=== PATIENT | male | born 1950 | race Two or more races ===

== ENCOUNTER 2022-06-21 14:06 | Day surgery (SDC) | payer MEDICARE, BC ==
[~2022-06-21] VITALS: Ht 152.4 cm; Wt 95.3 kg
[2022-06-21] MEDS ORDERED: METOPROLOL TARTRATE INJ 5 MG/5 ML AMPUL ONE (14:09)
[2022-06-21] MEDS ORDERED: IOHEXOL-350 100 ML VIAL IV ONE (14:09)
[2022-06-21] MEDS ORDERED: CT SWABBABLE VALVE TRANS SET 1 EA INFUS.SET MC ONE (14:09)
[2022-06-21] MEDS ORDERED: NITROGLYCERIN 0.4 MG/TAB BOTTLE ONE (14:09)
[2022-06-21] MEDS ORDERED: IV NS 0.9% 250 ML IV ONE (14:09)
--- NOTE | 2022-06-21 14:26 | NUR ---
RN NOTES. CTCA PROCEDURE WELL TOLERATED BY THE PT. PT IS AAOX4, NOT IN RESPIRATORY DISTRESS, V/S STABLE. BP:109/60, UT:61, RR:17, O2:100%. REPORT GIVEN TO [facility] FOR PT TRANSFER BACK TO [facility].
[2022-06-21] MEDS ORDERED: NITROGLYCERIN 0.4 MG/TAB BOTTLE SL ONE (14:30)
[2022-06-21] MEDS ORDERED: METOPROLOL TARTRATE INJ 5 MG/5 ML AMPUL IVP PRN (14:30)
[2022-06-21 14:39] VITALS: BP 109/60
== END 2022-06-21 14:44 | disposition short-term general hospital (02) ==
LOC: CT 14:06
PROVIDERS: ATTEND Internal Medicine Interventional Cardiology
DX: I65.22 Occlusion and stenosis of left carotid artery (principal); R07.9 Chest pain, unspecified; Z95.1 Presence of aortocoronary bypass graft; I25.10 Atherosclerotic heart disease of native coronary artery without angina pectoris
CPT/HCPCS: 75574; J3490; J7050; Q9967